=== PATIENT | male | born 1965 | race Two or more races ===

== ENCOUNTER 2021-06-17 08:48 | Inpatient (IN) | payer MEDICAID ==
[~2021-06-17] VITALS: Ht 172.7 cm; Wt 75.7 kg
[2021-06-17] MEDS ORDERED: HEPARIN 1000 UNITS/ML 10ML ONE (09:47)
[2021-06-17] MEDS ORDERED: NICARDIPINE 100MCG/ML 10ML VIAL (CATH LAB) IV ONE (09:47)
[2021-06-17] MEDS ORDERED: PHENYLEPHRINE 100MCG/ML 10ML VIAL (CATH LAB) IV ONE (09:47)
[2021-06-17] MEDS ORDERED: NITROGLYCERIN 50MCG/ML 10ML VIAL (CATH LAB) IV ONE (09:47)
[2021-06-17 11:58] LABS: BASOPHILS % 0.8 % (0.0-2.0); EOSINOPHILS % 0.7 % (0.0-5.0); HEMATOCRIT. 47.6 % (42.0-52.0); HEMOGLOBIN. 15.9 g/dL (14.0-18.0); MEAN CORPUSCULAR HEMOGLOBIN 29.5 pg (28.0-32.0); MEAN CORPUSCULAR VOLUME 88.2 fL (80.0-94.0); MEAN PLATELET VOLUME 7.6 fl (7.4-10.4); MONOCYTES % 7.5 % (2.0-8.0); PLATELET 474 x1000/uL (130-400); RED BLOOD CELL COUNT 5.39 mill/uL (4.7-6.1); RED CELL DISTRIBUTION WIDTH 12.8 % (11.6-14.6)
[2021-06-17 12:00] LABS: CHLORIDE 108 mEq/L (98-107)
[2021-06-17 12:05] LABS: ETHANOL BLOOD < 10 mg/dL
[2021-06-17] MEDS ORDERED: ONDANSETRON HCL 4MG/2ML INJ IV STA (12:22)
[2021-06-17] MEDS ORDERED: MORPHINE SULFATE 4 MG/ML CPJ (NOT FOR IM USE) IV STA (12:22)
[2021-06-17] MEDS ORDERED: NITROGLYCERIN OINT 1GM/INCH UDPKT TD ONE (12:30)
[2021-06-17] MEDS ORDERED: ASPIRIN 81MG TABLET PO ONE (12:30)
[2021-06-17] MEDS ORDERED: HEPARIN 25,000 UNITS PREMIX 250 ML IV ONE (12:45)
[2021-06-17] MEDS ORDERED: HEPARIN 5000 UNITS/ML VIAL IV ONE (12:45)
[2021-06-17 13:12] LABS: PARTIAL THROMBOPLASTIN TIME 27.2 sec (23.4-31.0); PROTHROMBIN TIME 10.6 sec (9.6-11.0)
[2021-06-17] MEDS ORDERED: HEPARIN 25,000 UNITS in DEXT 5% WATER 245 ML IV SCH (13:30)
[2021-06-17] MEDS ORDERED: LIDOCAINE HCL 1% 20ML VIAL (Pyxis) INJ ONE (14:49)
[2021-06-17] MEDS ORDERED: VERAPAMIL HCL 2.5 MG/1 ML 2ML VIAL IV ONE (14:49)
[2021-06-17] MEDS ORDERED: IODIXANOL 320MG/ML 100 ML BOTTLE IV ONE (14:50)
[2021-06-17] MEDS ORDERED: IOHEXOL-300 100 ML BOTTLE ONE (14:50)
[2021-06-17] MEDS ORDERED: HEPARIN SODIUM 1,000 UNIT/1ML VIAL IV ONE (15:09)
[2021-06-17] MEDS ORDERED: FENTANYL CITRATE/PF 50MCG/ML 2ML VIAL ONE (15:13)
[2021-06-17] MEDS ORDERED: MIDAZOLAM HCL 2 MG/2 ML VIAL ONE (15:13)
[2021-06-17] MEDS ORDERED: HEPARIN BOLUS PRN aPTT 30-44 IV (15:45)
[2021-06-17] MEDS ORDERED: ATROPINE SULFATE 1MG/10ML SYR ONE (15:49)
[2021-06-17] MEDS ORDERED: IODIXANOL 320MG/ML 200ML BOTTLE ONE (15:58)
[2021-06-17] MEDS ORDERED: ONDANSETRON HCL 4MG/2ML INJ IV PRN ×2 (16:00→16:30)
[2021-06-17] MEDS ORDERED: TRAMADOL 50MG TABLET PO PRN (16:00)
[2021-06-17] MEDS ORDERED: ACETAMINOPHEN 325MG TABLET PO PRN ×2 (16:00→16:30)
[2021-06-17] MEDS ORDERED: CLOPIDOGREL 75MG TABLET ONE (16:28)
[2021-06-17 16:30] VITALS: BP 135/99
[2021-06-17] MEDS ORDERED: MORPHINE SULFATE 2 MG/ML CPJ (NOT FOR IM USE) IV PRN (16:30)
[2021-06-17] MEDS ORDERED: ATROPINE SULFATE 1MG/10ML SYR IV PRN (16:30)
[2021-06-17] MEDS ORDERED: SODIUM CHLORIDE 0.45% 1,000 ML IV ONE (17:00)
[2021-06-17 17:02] VITALS: BP 135/99
[2021-06-17] MEDS ORDERED: NALOXONE HCL 0.4MG/ML VIAL IV PRN (18:00)
[2021-06-17 18:01] VITALS: BP 130/90
[2021-06-17] MEDS: METOPROLOL TARTRATE 25MG TABLET PO SCH (18:04)
[2021-06-17] MEDS ORDERED: HEPARIN BOLUS PRN aPTT <30 IV (19:00)
[2021-06-17 20:00] VITALS: BP 106/74
[2021-06-17] MEDS: ATORVASTATIN CALCIUM 40MG TABLET PO SCH (20:53)
[2021-06-17] MEDS ORDERED: ATORVASTATIN CALCIUM 40MG TABLET PO SCH (21:00)
[2021-06-17 22:00] VITALS: BP 108/67
[2021-06-17 23:52] VITALS: BP 113/55
[2021-06-18] VITALS (11 sets, daily range): BP systolic 93–114; BP diastolic 49–72
[2021-06-18] MEDS: SODIUM CHLORIDE 0.9% INJ 3ML FLUSH IVF SCH ×3 (05:01→20:14)
[2021-06-18 07:58] LABS: BASOPHILS % 0.3 % (0.0-2.0); EOSINOPHILS % 0.8 % (0.0-5.0); HEMATOCRIT. 42.4 % (42.0-52.0); HEMOGLOBIN. 14.5 g/dL (14.0-18.0); LYMPHOCYTES % 19.9 % (20.0-50.0); MEAN CORPUSCULAR HEMOGLOBIN 30.1 pg (28.0-32.0); MEAN PLATELET VOLUME 7.6 fl (7.4-10.4); PLATELET 434 x1000/uL (130-400); RED BLOOD CELL COUNT 4.82 mill/uL (4.7-6.1); RED CELL DISTRIBUTION WIDTH 12.8 % (11.6-14.6)
[2021-06-18 08:05] LABS: CHLORIDE 108 mEq/L (98-107)
[2021-06-18] MEDS ORDERED: ASPIRIN 81MG EC TABLET PO SCH (09:00)
[2021-06-18] MEDS: ASPIRIN 325MG TABLET PO SCH (09:03)
[2021-06-18] MEDS: CLOPIDOGREL 75MG TABLET PO SCH (09:04)
[2021-06-18] MEDS: METOPROLOL TARTRATE 25MG TABLET PO SCH ×2 (09:05→20:14)
[2021-06-18] MEDS: ATORVASTATIN CALCIUM 40MG TABLET PO SCH (20:13)
[2021-06-18] MEDS ORDERED: ENOXAPARIN 40MG/0.4ML SYR SUBCUT SCH (21:00)
[2021-06-19] VITALS (10 sets, daily range): BP systolic 93–123; BP diastolic 41–80
[2021-06-19] MEDS: SODIUM CHLORIDE 0.9% INJ 3ML FLUSH IVF SCH (05:06)
[2021-06-19 07:00] LABS: CHLORIDE 109 mEq/L (98-107)
[2021-06-19 07:09] LABS: BASOPHILS % 0.3 % (0.0-2.0); EOSINOPHILS % 0.9 % (0.0-5.0); HEMATOCRIT. 41.6 % (42.0-52.0); HEMOGLOBIN. 14.1 g/dL (14.0-18.0); LYMPHOCYTES % 25.7 % (20.0-50.0); MEAN CORPUSCULAR HEMOGLOBIN 29.7 pg (28.0-32.0); MEAN CORPUSCULAR VOLUME 87.6 fL (80.0-94.0); MEAN PLATELET VOLUME 7.6 fl (7.4-10.4); MONOCYTES % 10.8 % (2.0-8.0); NEUTROPHILS % 62.3 % (40.0-76.0); PLATELET 382 x1000/uL (130-400); RED BLOOD CELL COUNT 4.75 mill/uL (4.7-6.1); RED CELL DISTRIBUTION WIDTH 12.7 % (11.6-14.6)
[2021-06-19] MEDS: CLOPIDOGREL 75MG TABLET PO SCH (08:02)
[2021-06-19] MEDS: METOPROLOL TARTRATE 25MG TABLET PO SCH (08:02)
[2021-06-19] MEDS: ASPIRIN 325MG TABLET PO SCH (08:02)
[2021-06-19] MEDS ORDERED: CLOP75TA15 PO (13:37)
[2021-06-19] MEDS ORDERED: METO25TA6 PO (13:37)
[2021-06-19] MEDS ORDERED: LIP40 PO (13:37)
[2021-06-19] MEDS ORDERED: ASPI-986 PO (13:37)
== END 2021-06-19 19:28 | disposition home or self-care (01) | DRG 174 ==
LOC: ER 09:16 → EDBEDREQSVC 14:25 → EDBEDREQ 14:25 → 3WST 17:25
PROVIDERS: ADMIT Internal Medicine; ATTEND Internal Medicine
PROC: 027034Z Dilation of Coronary Artery, One Artery with Drug-eluting Intraluminal Device, Percutaneous Approach (ICD-10-PCS; principal; 2021-06-17)
PROC: 4A023N7 Measurement of Cardiac Sampling and Pressure, Left Heart, Percutaneous Approach (ICD-10-PCS; 2021-06-17)
PROC: B2111ZZ Fluoroscopy of Multiple Coronary Arteries using Low Osmolar Contrast (ICD-10-PCS; 2021-06-17)
PROC: B2151ZZ Fluoroscopy of Left Heart using Low Osmolar Contrast (ICD-10-PCS; 2021-06-17)
PROC: 02703ZZ Dilation of Coronary Artery, One Artery, Percutaneous Approach (ICD-10-PCS; 2021-06-17)
DX: I21.3 ST elevation (STEMI) myocardial infarction of unspecified site (principal); I11.9 Hypertensive heart disease without heart failure; E78.5 Hyperlipidemia, unspecified; Z20.822 Contact with and (suspected) exposure to COVID-19; E87.5 Hyperkalemia; I25.110 Atherosclerotic heart disease of native coronary artery with unstable angina pectoris; Z82.49 Family history of ischemic heart disease and other diseases of the circulatory system
CPT/HCPCS: 36415; 71045; 80048; 80053; 80320; 83880; 84484; 85025; 85347; 87426; 92941; 93005; 93306; 93458; 99291; C1725; C1760; C1769; C1874; C1887; C1893; J0461; J1644; J1650; J2250; J2270; J2370; J2405; J3010; J3490; J7060; Q9967; G0480

== ENCOUNTER 2022-06-10 09:14 | Inpatient (IN) | payer MEDICAID ==
[~2022-06-10] VITALS: Ht 170.2 cm; Wt 65.5 kg
[~2022-06-10 09:14] MED LIST: ASPI-986 PO; CLOP75TA15 PO; LIP40 PO; METO25TA6 PO
[2022-06-10 17:15] LABS: BASOPHILS % 0.4 % (0.0-2.0); EOSINOPHILS % 1.8 % (0.0-5.0); HEMATOCRIT. 42.4 % (42.0-52.0); HEMOGLOBIN. 14.1 g/dL (14.0-18.0); LYMPHOCYTES % 25.9 % (20.0-50.0); MEAN CORPUSCULAR HEMOGLOBIN 29.5 pg (28.0-32.0); MEAN CORPUSCULAR VOLUME 88.6 fL (80.0-94.0); MEAN PLATELET VOLUME 8.4 fl (7.4-10.4); MONOCYTES % 6.9 % (2.0-8.0); PLATELET 348 x1000/uL (130-400); RED BLOOD CELL COUNT 4.78 mill/uL (4.7-6.1); RED CELL DISTRIBUTION WIDTH 13.2 % (11.6-14.6)
[2022-06-10 17:20] LABS: CHLORIDE 111 mEq/L (98-107)
[2022-06-10 17:28] LABS: ETHANOL BLOOD < 10 mg/dL
[2022-06-10] MEDS ORDERED: NITROGLYCERIN 0.4MG TABLET SL SL PRN (19:15)
[2022-06-10] MEDS ORDERED: ASPIRIN 81MG TABLET PO ONE (19:15)
[2022-06-10] MEDS ORDERED: GUAIFENESIN 200MG/10ML SUGAR FREE UDC PO PRN (21:30)
[2022-06-10] MEDS ORDERED: MAGNESIUM HYDROXIDE 400MG/5ML 30ML UDC PO PRN (21:30)
[2022-06-10] MEDS ORDERED: MAGNESIUM/ALUMINUM HYDROXIDE/SIMETHICONE 30ML UDC PO PRN (21:30)
[2022-06-10] MEDS ORDERED: ZOLPIDEM TARTRATE 5MG TABLET PO PRN (21:30)
[2022-06-10] MEDS ORDERED: DIPHENHYDRAMINE 50MG/ML VIAL IV PRN (21:30)
[2022-06-10] MEDS ORDERED: ACETAMINOPHEN 325MG TABLET PO PRN ×2 (21:30)
[2022-06-10] MEDS ORDERED: ONDANSETRON HCL 4MG/2ML INJ IV PRN (21:30)
[2022-06-10] MEDS ORDERED: ASPIRIN 81MG TABLET PO NR (23:00)
[2022-06-10] MEDS: SODIUM CHLORIDE 0.9% INJ 3ML FLUSH IVF SCH (23:25)
[2022-06-11] VITALS (7 sets, daily range): BP systolic 96–121; BP diastolic 49–76
[2022-06-11] MEDS: SODIUM CHLORIDE 0.9% INJ 3ML FLUSH IVF SCH ×3 (06:00→21:48)
[2022-06-11] MEDS: PANTOPRAZOLE 40MG DR TABLET PO SCH ×2 (06:24→21:23)
[2022-06-11] MEDS: CYANOCOBALAMIN 1000MCG TABLET PO SCH (06:24)
[2022-06-11] MEDS ORDERED: NALOXONE HCL 0.4MG/ML VIAL IV PRN (08:30)
[2022-06-11 08:58] LABS: T4 FREE 1.34 ng/dL (0.76-1.46)
[2022-06-11] MEDS ORDERED: ENOXAPARIN 80MG/0.8ML SYR SUBCUT SCH (09:00)
[2022-06-11] MEDS ORDERED: ENOXAPARIN 40MG/0.4ML SYR SUBCUT SCH (09:00)
[2022-06-11] MEDS: CLOPIDOGREL 75MG TABLET PO SCH (09:12)
[2022-06-11] MEDS: ASPIRIN 81MG EC TABLET PO SCH (09:14)
[2022-06-11 16:55] LABS: D-DIMER < 0.19 mg/L FEU (<0.50); INR 1.1; PROTHROMBIN TIME 11.4 sec (9.6-11.0)
[2022-06-11 17:12] LABS: CREATINE KINASE 64 IU/L (39-308); CREATINE KINASE MB FRACTION < 1.0 ng/mL (0.5-3.6)
[2022-06-11] MEDS ORDERED: FAMOTIDINE 20MG TABLET PO SCH (21:00)
[2022-06-11] MEDS: ATORVASTATIN CALCIUM 40MG TABLET PO SCH (21:26)
[2022-06-11] MEDS: ENOXAPARIN 80MG/0.8ML SYR SUBCUT SCH (22:36)
[2022-06-11 23:22] LABS: CREATINE KINASE 64 IU/L (39-308); CREATINE KINASE MB FRACTION < 1.0 ng/mL (0.5-3.6)
[2022-06-12] VITALS: BP 91/47
[2022-06-12 04:00] VITALS: BP 90/54
[2022-06-12 04:37] LABS: CREATINE KINASE 62 IU/L (39-308); CREATINE KINASE MB FRACTION < 1.0 ng/mL (0.5-3.6)
[2022-06-12] MEDS: SODIUM CHLORIDE 0.9% INJ 3ML FLUSH IVF SCH ×3 (05:22→22:12)
[2022-06-12] MEDS: PANTOPRAZOLE 40MG DR TABLET PO SCH ×2 (05:44→22:10)
[2022-06-12] MEDS: CYANOCOBALAMIN 1000MCG TABLET PO SCH (06:18)
[2022-06-12 08:00] VITALS: BP 92/51
[2022-06-12] MEDS: ENOXAPARIN 80MG/0.8ML SYR SUBCUT SCH ×2 (11:08→22:11)
[2022-06-12] MEDS: CLOPIDOGREL 75MG TABLET PO SCH (11:08)
[2022-06-12] MEDS: ASPIRIN 81MG EC TABLET PO SCH (11:08)
[2022-06-12 12:00] VITALS: BP 97/56
[2022-06-12 16:00] VITALS: BP 116/66
[2022-06-12 20:00] VITALS: BP 102/69
[2022-06-12] MEDS: MORPHINE SULFATE 2 MG/ML CPJ (NOT FOR IM USE) IV PRN (22:12)
[2022-06-12] MEDS: ATORVASTATIN CALCIUM 40MG TABLET PO SCH (22:16)
[2022-06-13] VITALS: BP 98/60
[2022-06-13 04:00] VITALS: BP 100/62
[2022-06-13] MEDS: SODIUM CHLORIDE 0.9% INJ 3ML FLUSH IVF SCH ×2 (06:18→16:14)
[2022-06-13] MEDS: PANTOPRAZOLE 40MG DR TABLET PO SCH ×2 (06:21→21:26)
[2022-06-13] MEDS: CYANOCOBALAMIN 1000MCG TABLET PO SCH (07:10)
[2022-06-13] MEDS ORDERED: HEPARIN 1000 UNITS/ML 10ML ONE (07:46)
[2022-06-13] MEDS ORDERED: LIDOCAINE HCL/PF 2% 20MG/ML 5 ML/VIAL ONE (07:46)
[2022-06-13] MEDS ORDERED: IODIXANOL 320MG/ML 100 ML BOTTLE IV ONE (07:46)
[2022-06-13 08:00] VITALS: BP 104/57
[2022-06-13 08:07] VITALS: BP 104/57
[2022-06-13] MEDS: CLOPIDOGREL 75MG TABLET PO SCH (08:16)
[2022-06-13] MEDS: ASPIRIN 81MG EC TABLET PO SCH (08:16)
[2022-06-13] MEDS: ENOXAPARIN 80MG/0.8ML SYR SUBCUT SCH ×2 (08:16→21:27)
[2022-06-13] MEDS ORDERED: MIDAZOLAM HCL 2 MG/2 ML VIAL ONE (08:24)
[2022-06-13] MEDS ORDERED: FENTANYL CITRATE/PF 50MCG/ML 2ML VIAL ONE (08:25)
[2022-06-13] MEDS ORDERED: ATROPINE SULFATE 1MG/10ML SYR IV PRN (09:30)
[2022-06-13 16:00] VITALS: BP 93/54
[2022-06-13 20:00] VITALS: BP 101/66
[2022-06-13] MEDS: ATORVASTATIN CALCIUM 40MG TABLET PO SCH (21:26)
[2022-06-13] MEDS: MORPHINE SULFATE 2 MG/ML CPJ (NOT FOR IM USE) IV PRN (21:28)
[2022-06-14] VITALS: BP 112/69
[2022-06-14 04:00] VITALS: BP 94/61
[2022-06-14] MEDS: PANTOPRAZOLE 40MG DR TABLET PO SCH (05:56)
[2022-06-14] MEDS: SODIUM CHLORIDE 0.9% INJ 3ML FLUSH IVF SCH ×2 (05:56→05:57)
[2022-06-14 08:00] VITALS: BP 90/53
[2022-06-14] MEDS: CYANOCOBALAMIN 1000MCG TABLET PO SCH (08:40)
[2022-06-14] MEDS: ENOXAPARIN 80MG/0.8ML SYR SUBCUT SCH (08:40)
[2022-06-14] MEDS: ASPIRIN 81MG EC TABLET PO SCH (08:40)
[2022-06-14] MEDS: CLOPIDOGREL 75MG TABLET PO SCH (08:40)
[2022-06-14 11:38] VITALS: BP 90/53
[2022-06-14 12:00] VITALS: BP 90/55
== END 2022-06-14 15:25 | disposition home or self-care (01) | DRG 191 ==
LOC: ER 09:22 → EDBEDREQ 20:31 → EDBEDREQTM 20:31 → ENRESERV 23:19 → 7EST 06-11 00:24
PROVIDERS: ADMIT Internal Medicine; ATTEND Internal Medicine
PROC: 4A023N7 Measurement of Cardiac Sampling and Pressure, Left Heart, Percutaneous Approach (ICD-10-PCS; principal; 2022-06-13)
PROC: B2111ZZ Fluoroscopy of Multiple Coronary Arteries using Low Osmolar Contrast (ICD-10-PCS; 2022-06-13)
PROC: B2151ZZ Fluoroscopy of Left Heart using Low Osmolar Contrast (ICD-10-PCS; 2022-06-13)
DX: I25.110 Atherosclerotic heart disease of native coronary artery with unstable angina pectoris (principal); E78.00 Pure hypercholesterolemia, unspecified; I10 Essential (primary) hypertension; K21.9 Gastro-esophageal reflux disease without esophagitis; E78.5 Hyperlipidemia, unspecified; Z79.899 Other long term (current) drug therapy; Z95.5 Presence of coronary angioplasty implant and graft; I25.2 Old myocardial infarction
CPT/HCPCS: 36415; 71045; 80053; 80061; 80320; 82550; 82553; 82962; 83036; 83880; 84439; 84443; 84484; 85025; 85379; 93005; 93306; 93458; 99285; C1769; C1887; C1893; J1644; J1650; J2250; J2270; J3010; J3490; Q9967; G0480